=== PATIENT | female | born 1990 | race African-American/Black ===

== ENCOUNTER 2017-07-27 21:04 | Emergency (ER) | payer MEDICAID ==
[~2017-07-27] VITALS: Ht 165.1 cm; Wt 61.0 kg
[2017-07-28] MEDS ORDERED: AMOXICILLIN/POTASSIUM CLAVULANATE 875/125MG TAB PO ONE (01:15)
[2017-07-28] MEDS ORDERED: IBUPROFEN 800MG TABLET PO ONE (01:15)
[2017-07-28] MEDS ORDERED: ACETAMINOPHEN WITH CODEINE 300/30MG TABLET PO ONE (01:15)
[2017-07-28 01:45] VITALS: BP 120/55
== END 2017-07-28 01:45 | disposition home or self-care (01) ==
LOC: ER 22:23
DX: K04.7 Periapical abscess without sinus (principal)
CPT/HCPCS: 99284; Z7610

== ENCOUNTER 2017-09-02 08:43 | Emergency (ER) | payer MEDICAID ==
[~2017-09-02] VITALS: Ht 167.6 cm; Wt 56.0 kg
[2017-09-02 08:47] VITALS: BP 142/74
[2017-09-02] MEDS ORDERED: IBUPROFEN 600MG TABLET PO ONE (11:00)
== END 2017-09-02 13:45 | disposition left against medical advice (07) ==
LOC: ER 13:31
DX: L02.01 Cutaneous abscess of face (principal)
CPT/HCPCS: 81025; 99282

== ENCOUNTER 2017-11-28 12:13 | Emergency (ER) | payer MEDICAID ==
[~2017-11-28] VITALS: Ht 165.1 cm; Wt 59.0 kg
[2017-11-28] MEDS ORDERED: SODIUM CHLORIDE 0.9% 1,000 ML IV ONE (12:32)
[2017-11-28 13:19] LABS: BASOPHILS % 1.7 % (0.0-2.0); EOSINOPHILS % 1.3 % (0.0-5.0); HEMATOCRIT. 35.2 % (36.0-48.0); HEMOGLOBIN. 11.7 g/dL (12.0-16.0); LYMPHOCYTES % 53.6 % (20.0-50.0); MEAN CORPUSCULAR VOLUME 84.2 fL (81.0-99.0); MEAN PLATELET VOLUME 8.9 fl (7.4-10.4); MONOCYTES % 6.4 % (2.0-8.0); PLATELET 224 x1000/uL (130-400); RED BLOOD CELL COUNT 4.18 mill/uL (4.2-5.4); RED CELL DISTRIBUTION WIDTH 13.4 % (11.6-14.6)
[2017-11-28 13:22] LABS: CLARITY URINE CLOUDY (CLEAR); COLOR URINE YELLOW (YELLOW); KETONES URINE NEGATIVE (NEGATIVE); LEUKOCYTE ESTERASE URINE 3+ (NEGATIVE); NITRITE URINE NEGATIVE (NEGATIVE); OCCULT BLOOD URINE 3+ (NEGATIVE); PROTEIN URINE NEGATIVE (NEGATIVE); SPECIFIC GRAVITY URINE 1.013 (1.005-1.030); UROBILINOGEN URINE 0.2 E.U./dL (0.2-1.0)
[2017-11-28 13:23] LABS: CHLORIDE 107 mEq/L (98-107)
[2017-11-28 13:27] LABS: ETHANOL BLOOD < 10 mg/dL
[2017-11-28 13:44] LABS: HCG SCREEN NEGATIVE
[2017-11-28 13:45] LABS: *AMPHETAMINES SCREEN URINE NEGATIVE (NEGATIVE); *BARBITURATES SCREEN URINE NEGATIVE (NEGATIVE); *BENZODIAZEPINES SCREEN URINE NEGATIVE (NEGATIVE); *COCAINE SCREEN URINE NEGATIVE (NEGATIVE)
[2017-11-28] MEDS ORDERED: ACETAMINOPHEN 325MG TABLET PO ONE (13:45)
[2017-11-28 13:46] LABS: METHADONE URINE SCREEN NEGATIVE (NEGATIVE); OPIATES URINE SCREEN NEGATIVE (NEGATIVE); PHENCYCLIDINE URINE SCREEN NEGATIVE (NEGATIVE)
[2017-11-28 14:00] LABS: CANNABINOID URINE SCREEN PRESUMTIVE POSITIVE (NEGATIVE)
[2017-11-28 17:14] VITALS: BP 104/74
== END 2017-11-28 17:14 | disposition home or self-care (01) ==
LOC: ER 12:13
DX: R55 Syncope and collapse (principal); S00.83XA Contusion of other part of head, initial encounter; W01.198A Fall on same level from slipping, tripping and stumbling with subsequent striking against other object, initial encounter; Y93.89 Activity, other specified; Y92.092 Bedroom in other non-institutional residence as the place of occurrence of the external cause
CPT/HCPCS: 36415; 70450; 70486; 71045; 80048; 80305; 81003; 81025; 82962; 83735; 84484; 84703; 85025; 87077; 87086; 93005; 96360; 99285; G0482; J7030

== ENCOUNTER 2019-03-25 09:05 | Emergency (ER) | payer MEDICAID ==
[~2019-03-25] VITALS: Ht 165.1 cm; Wt 55.0 kg
[2019-03-25] MEDS ORDERED: SODIUM CHLORIDE 0.9% 1,000 ML IV ONE (09:39)
[2019-03-25] MEDS ORDERED: METOCLOPRAMIDE HCL 10MG/2ML VIAL IV ONE (09:45)
[2019-03-25] MEDS ORDERED: KETOROLAC 30MG/ML VIAL IV ONE (09:45)
[2019-03-25 10:11] LABS: BASOPHILS % 1.4 % (0.0-2.0); EOSINOPHILS % 2.7 % (0.0-5.0); HEMATOCRIT. 35.3 % (36.0-48.0); HEMOGLOBIN. 11.7 g/dL (12.0-16.0); LYMPHOCYTES % 41.9 % (20.0-50.0); MEAN CORPUSCULAR HEMOGLOBIN 28.8 pg (28.0-32.0); MEAN CORPUSCULAR VOLUME 86.7 fL (81.0-99.0); MEAN PLATELET VOLUME 8.8 fl (7.4-10.4); MONOCYTES % 6.3 % (2.0-8.0); NEUTROPHILS % 47.7 % (40.0-76.0); PLATELET 208 x1000/uL (130-400); RED BLOOD CELL COUNT 4.07 mill/uL (4.2-5.4); RED CELL DISTRIBUTION WIDTH 13.9 % (11.6-14.6)
[2019-03-25 10:19] LABS: CHLORIDE 105 mEq/L (98-107)
[2019-03-25 12:08] VITALS: BP 105/65
== END 2019-03-25 12:10 | disposition home or self-care (01) ==
LOC: ER 09:05
DX: R10.30 Lower abdominal pain, unspecified (principal); N93.9 Abnormal uterine and vaginal bleeding, unspecified
CPT/HCPCS: 36415; 76830; 76856; 80053; 81025; 85025; 96374; 96375; 99284; J1885; J2765; J7030; Z7610

== ENCOUNTER 2021-12-19 08:35 | Emergency (ER) | payer MEDICAID ==
[~2021-12-19] VITALS: Ht 167.6 cm; Wt 75.0 kg
[2021-12-19] MEDS ORDERED: IBUP-2030 MT (09:59)
[2021-12-19] MEDS ORDERED: AMOX1TAB16 MT (09:59)
[2021-12-19] MEDS ORDERED: AMOXICILLIN/POTASSIUM CLAVULANATE 875/125MG TAB PO ONE (10:00)
[2021-12-19] MEDS ORDERED: KETOROLAC 15MG/ML VIAL IM ONE (10:00)
[2021-12-19 10:21] VITALS: BP 124/96
== END 2021-12-19 10:23 | disposition home or self-care (01) ==
LOC: ER 08:35
DX: K04.7 Periapical abscess without sinus (principal)
CPT/HCPCS: 81025; 96372; 99283; J1885

== ENCOUNTER 2022-02-21 07:02 | Inpatient (IN) | payer MEDICAID ==
[~2022-02-21] VITALS: Ht 170.2 cm; Wt 50.2 kg
[~2022-02-21 07:02] MED LIST: AMOX1TAB16 MT; IBUP-2030 MT
[2022-02-21] MEDS ORDERED: SODIUM CHLORIDE 0.9% 1,000 ML IV ONE (08:00)
[2022-02-21] MEDS ORDERED: LEVETIRACETAM 1000MG PREMIX 100 ML IV ONE (08:00)
[2022-02-21] MEDS ORDERED: LORAZEPAM 2MG/ML CPJ IV ONE (08:00)
[2022-02-21] MEDS ORDERED: LORAZEPAM 2MG/ML CPJ IM ONE (08:15)
[2022-02-21 09:03] LABS: BASOPHILS % 0.6 % (0.0-2.0); HEMATOCRIT. 36.1 % (36.0-48.0); HEMOGLOBIN. 11.9 g/dL (12.0-16.0); LYMPHOCYTES % 9.8 % (20.0-50.0); MEAN CORPUSCULAR VOLUME 91.4 fL (81.0-99.0); MEAN PLATELET VOLUME 9.1 fl (7.4-10.4); NEUTROPHILS % 86.6 % (40.0-76.0); PLATELET 235 x1000/uL (130-400); RED BLOOD CELL COUNT 3.96 mill/uL (4.2-5.4); RED CELL DISTRIBUTION WIDTH 13.4 % (11.6-14.6)
[2022-02-21 09:09] LABS: CHLORIDE 109 mEq/L (98-107)
[2022-02-21 09:18] LABS: CREATINE KINASE 165 IU/L (26-192); ETHANOL BLOOD < 10 mg/dL
[2022-02-21] MEDS ORDERED: HALOPERIDOL LACTATE 5MG/ML VIAL IM ONE (10:15)
[2022-02-21 18:15] VITALS: BP 89/41
[2022-02-21 18:38] VITALS: BP 88/60
[2022-02-21 20:07] VITALS: BP 95/48
[2022-02-22] VITALS: BP 91/54
[2022-02-22 04:00] VITALS: BP 91/60
[2022-02-22] MEDS ORDERED: POTASSIUM CHLORIDE 20MEQ TABLET SR PO NR (08:00)
[2022-02-22] MEDS ORDERED: LEVETIRACETAM 500MG TABLET PO SCH (09:00)
== END 2022-02-22 08:15 | disposition left against medical advice (07) | DRG 53 ==
LOC: ER 07:02 → 3WST 11:00 → EDBEDREQ 11:02 → 3WST 18:22
PROVIDERS: ADMIT Internal Medicine; ATTEND Internal Medicine
DX: G40.909 Epilepsy, unspecified, not intractable, without status epilepticus (principal); Z53.29 Procedure and treatment not carried out because of patient's decision for other reasons; Z91.14 Patient's other noncompliance with medication regimen
CPT/HCPCS: 36415; 80053; 80320; 82550; 84484; 85025; 93005; 99285; J1630; J1953; J2060; J7030; G0480

== ENCOUNTER 2023-09-24 08:34 | Emergency (ER) | payer MEDICAID, BC ==
[~2023-09-24] VITALS: Ht 165.1 cm; Wt 63.5 kg
[~2023-09-24 08:34] MED LIST changes: +OFLO5DRO4 RIGHT EAR
[2023-09-24 09:15] VITALS: BP 101/61; PULSE 67; RESP 16; TEMP 98.3; O2SAT 100
== END 2023-09-24 11:14 | disposition home or self-care (01) ==
LOC: ER 08:38
DX: B34.9 Viral infection, unspecified (principal); F12.90 Cannabis use, unspecified, uncomplicated
CPT/HCPCS: 99281